=== PATIENT | female | born 1975 ===

== ENCOUNTER 2018-06-14 15:29 | Emergency (ER) | payer OTHER ==
--- NOTE | 2018-06-14 16:02 | ED PDOC ---
HPI: Back Time Seen by Provider: 06/14/18 15:53 Chief Complaint (Nursing): Back Pain Chief Complaint (Provider): Back Pain History Per: Patient, Zone Manager (ANNIEOMARJaleel BurnetteProtocol Manager #[id number]) Onset/Duration Of Symptoms: Days (x3) Current Symptoms Are (Timing): Still Present Additional Complaint(s): 42 y/o female with a PMHx of Kidney Stones presents to the ED for evaluation of left flank pain for the past three days. Patient states pain is more constant and is worsening since onset. Patient notes pain worsens with movement. Patient reports of taking Rowatinex with no relief of symptoms. Otherwise, patient denies injury and urinary symptoms including hematuria and dysuria. PMD: no provider Past Medical History Reviewed: Historical Data, Nursing Documentation, Vital Signs Vital Signs: Last Vital Signs Temp 98.1 F 06/14/18 15:46 Pulse 64 06/14/18 15:46 Resp 18 06/14/18 15:46 BP 118/80 06/14/18 15:46 Pulse Ox 100 06/14/18 15:46 - Medical History PMH: Kidney Stones - Surgical History Surgical History: No Surg Hx - Family History Family History: States: Unknown Family Hx - Home Medications Home Medications: Ambulatory Orders Medication Instructions Recorded Acetaminophen with Codeine 1 tab PO Q6H PRN #10 tab 06/14/18 [Tylenol with Codeine No. 3 300 mg-30 mg] Naproxen [Naprosyn] 500 mg PO BID PRN #15 tablet 06/14/18 Nitrofurantoin Macrocrystals 100 mg PO BID #9 cap 06/14/18 [Macrobid] - Allergies Allergies/Adverse Reactions: Allergies Allergy/AdvReac Type Severity Reaction Status Date / Time No Known Allergies Allergy Verified 06/14/18 15:46 Review of Systems ROS Statement: Except As Marked, All Systems Reviewed And Found Negative Genitourinary Female: Negative for: Dysuria, Hematuria Musculoskeletal: Positive for: Back Pain (left flank pain) Physical Exam - Reviewed Nursing Documentation Reviewed: Yes Vital Signs Reviewed: Yes - Physical Exam Appears: Positive for: No Acute Distress Head Exam: Positive for: ATRAUMATIC, NORMOCEPHALIC Skin: Positive for: Normal Color, Warm, Dry Eye Exam: Positive for: Normal appearance, EOMI, PERRL Neck: Positive for: Normal, Painless ROM, Supple Cardiovascular/Chest: Positive for: Regular Rate, Rhythm. Negative for: Murmur Respiratory: Positive for: Normal Breath Sounds. Negative for: Respiratory Distress Gastrointestinal/Abdominal: Positive for: Normal Exam, Soft. Negative for: Tenderness Back: Positive for: L CVA Tenderness. Negative for: R CVA Tenderness Extremity: Positive for: Normal ROM. Negative for: Deformity Neurological/Psych: Positive for: Awake, Alert, Oriented (x3). Negative for: Motor/Sensory Deficits - Laboratory Results Result Diagrams: 06/14/18 16:48 06/14/18 16:48 - ECG O2 Sat by Pulse Oximetry: 100 (RA) Pulse Ox Interpretation: Normal Medical Decision Making Medical Decision Making: Time: 1559 Impression: Flank Pain Plan: -- ED Urine -- ED Urine Dipstick Accession No. : [id number] Patient Name / ID : JUANA GOFF / [id number] Exam Date : 06/14/2018 17:49:20 ( Approved ) Study Comment : Sex / Age : F / 42Y Creator : ashley kathleen Dictator : Trev Rodriguez MD [employer] Coiling Machine Setter : Vice President Of Contracts : Trev Rodriguez MD Approver2 : Report Date : 06/14/2018 18:00:04 My Comment : Date of service: 06/14/2018 PROCEDURE: CT Abdomen and Pelvis without intravenous contrast HISTORY: L flank pain, h/o kidney stone COMPARISON: None. TECHNIQUE: Axial and reformatted coronal and sagittal CT images of the abdomen and pelvis were obtained without IV or oral contrast administration. Contrast dose: 0 Radiation dose: Total exam DLP = 468.8 mGy-cm. This CT exam was performed using one or more of the following dose reduction te chniques: Automated exposure control, adjustment of the mA and/or kV according to patient size, and/or use of iterative reconstruction technique. FINDINGS: LOWER THORAX: There is 3 millimeter calcified nodule at the right lung lower lobe. No evidence of pneumonia or pleural effusion. LIVER: Hepatomegaly is noted. GALLBLADDER AND BILE DUCTS: No evidence of radiopaque cholelithiasis or acute cholecystitis. PANCREAS: Unremarkable. No gross lesion or ductal dilatation. SPLEEN: Unremarkable. ADRENALS: Unremarkable. No mass. KIDNEYS AND URETERS: There is large staghorn calculus at the left renal pelvis measures up to 2.3 centimeter in the transverse diameter. Hijp-pi-gtafddka right hydronephrosis is noted. Mild left hydronephrosis is noted. No evidence of ureteral stones. No evidence of right renal calculi. VASCULATURE: Unremarkable. No aortic aneurysm. No aortic atherosclerotic calcification or mural plaque present. BOWEL: Unremarkable. No obstruction. No gross mural thickening. APPENDIX: Unremarkable. Normal appendix. PERITONEUM: Unremarkable. No free fluid. No free air. LYMPH NODES: Unremarkable. No enlarged lymph nodes. BLADDER: Unremarkable. REPRODUCTIVE: 2.9 centimeter cyst noted at the right adnexa. BONES: No acute fracture. 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 OTHER FINDINGS: None. IMPRESSION: Large staghorn calculus in the left kidney collecting system. Doxu-vr-seyymbrc right hydronephrosis without definite evidence of obstructing calculus. Mild left hydronephrosis. Mild bilateral hydroureter is without evid ence of obstructing stone. 2.9 centimeter cyst at the right adnexa. 20:[address] Borjas, agrees with discharge home with antibiotics and pain meds, to follow-up in office. Plan discussed with patient in detail using cut roll machine offbearer. Scribe Attestation: Documented by Keyla Castillo, acting as a scribe Cuauhtemoc Alberts MD. Provider Scribe Attestation: All medical record entries made by the Scribe were at my direction and personally dictated by me. I have reviewed the chart and agree that the record accurately reflects my personal performance of the history, physical exam, [place] [facility] decision making, and the department course for this patient. I have also personally directed, reviewed, and agree with the discharge instructions and disposition. Disposition - Clinical Impression Clinical Impression: Staghorn renal calculus, UTI (urinary tract infection) - Disposition Referrals: Max Borjas MD [Medical Doctor] - Disposition: Routine/Home Disposition Time: 20:00 Condition: STABLE Prescriptions: Acetaminophen with Codeine [Tylenol with Codeine No. 3 300 mg-30 mg] 1 tab PO Q6H PRN #10 tab PRN Reason: Pain, Severe (8-10) Naproxen [Naprosyn] 500 mg PO BID PRN #15 tablet PRN Reason: Pain, Moderate (4-7) Nitrofurantoin Macrocrystals [Macrobid] 100 mg PO BID #9 cap Instructions: Urinary Tract Infections in Adults, Kidney Stones in Adults Forms: [facility] (Swazi) Print Language: JAPANESE
[2018-06-14] MEDS ORDERED: Sodium Chloride 0.9% 1,000 ML IV STA (16:27)
[2018-06-14 16:55] LABS: BASO % 0.6 % (0.0-2.0); EOS # 0.1 K/uL (0.0-0.7); EOS % 1.9 % (0.0-4.0); HEMOGLOBIN 11.9 g/dL (12.0-16.0); LYMPH # 2.8 K/uL (1.0-4.3); LYMPH % 39.8 % (20.0-40.0); MEAN CORPUSCULAR HGB CONC 33.4 g/dL (33.0-37.0); MONO # 0.5 K/uL (0.0-0.8); MONO % 6.7 % (0.0-10.0); NEUT # 3.6 K/uL (1.8-7.0); RBC 4.09 Mil/uL (3.80-5.20); RED CELL DISTRIBUTION WIDTH 13.3 % (11.5-14.5)
[2018-06-14 17:00] LABS: INR 0.9; PROTHROMBIN TIME 10.6 Seconds (9.8-13.1)
[2018-06-14 17:03] LABS: PARTIAL THROMBOPLASTIN TIME 29.7 Seconds (25.6-37.1)
[2018-06-14 17:19] LABS: SQUAMOUS EPITHIAL < 1 /hpf (0-5); URINE BACTERIA RARE (<OCC); URINE BILIRUBIN NEGATIVE (NEGATIVE); URINE BLOOD SMALL (NEGATIVE); URINE CLARITY CLEAR (Clear); URINE COLOR STRAW (YELLOW); URINE GLUCOSE (UA) NEG (NEGATIVE); URINE LEUKOCYTE ESTERASE SMALL Leu/uL (Negative); URINE PROTEIN NEGATIVE (NEGATIVE); URINE UROBILINOGEN 0.2-1.0 mg/dL (0.2-1.0)
[2018-06-14 17:20] LABS: ALB/GLOB RATIO 1.2 (1.0-2.1); ALBUMIN 4.3 g/dL (3.5-5.0); ALT/SGPT 30 U/L (9-52); AST/SGOT 26 U/L (14-36); BLOOD UREA NITROGEN 13 mg/dl (7-17); CALCIUM 9.2 mg/dL (8.4-10.2); GFR NON-AFRICAN AMERICAN > 60
--- NOTE | 2018-06-14 18:29 | CT ---
Date of service: 06/14/2018 PROCEDURE: CT Abdomen and Pelvis without intravenous contrast HISTORY: L flank pain, h/o kidney stone COMPARISON: None. TECHNIQUE: Axial and reformatted coronal and sagittal CT images of the abdomen and pelvis were obtained without IV or oral contrast administration. Contrast dose: 0 Radiation dose: Total exam DLP = 468.8 mGy-cm. This CT exam was performed using one or more of the following dose reduction techniques: Automated exposure control, adjustment of the mA and/or kV according to patient size, and/or use of iterative reconstruction technique. FINDINGS: LOWER THORAX: There is 3 millimeter calcified nodule at the right lung lower lobe. No evidence of pneumonia or pleural effusion. LIVER: Hepatomegaly is noted. GALLBLADDER AND BILE DUCTS: No evidence of radiopaque cholelithiasis or acute cholecystitis. PANCREAS: Unremarkable. No gross lesion or ductal dilatation. SPLEEN: Unremarkable. ADRENALS: Unremarkable. No mass. KIDNEYS AND URETERS: There is large staghorn calculus at the left renal pelvis measures up to 2.3 centimeter in the transverse diameter. Idwp-[id number]-trpymugk right hydronephrosis is noted. Mild left hydronephrosis is noted. No evidence of ureteral stones. No evidence of right renal calculi. VASCULATURE: Unremarkable. No aortic aneurysm. No aortic atherosclerotic calcification or mural plaque present. BOWEL: Unremarkable. No obstruction. No gross mural thickening. APPENDIX: Unremarkable. Normal appendix. PERITONEUM: Unremarkable. No free fluid. No free air. LYMPH NODES: Unremarkable. No enlarged lymph nodes. BLADDER: Unremarkable. REPRODUCTIVE: 2.9 centimeter cyst noted at the right adnexa. BONES: No acute fracture. 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 OTHER FINDINGS: None. IMPRESSION: Large staghorn calculus in the left kidney collecting system. Wovl-lt-fhkramcw right hydronephrosis without definite evidence of obstructing calculus. Mild left hydronephrosis. Mild bilateral hydroureter is without evidence of obstructing stone. 2.9 centimeter cyst at the right adnexa.
[2018-06-14 20:22] VITALS: BP 121/60; PULSE 80; RESP 14; TEMP 98.2
[2018-06-17 10:29] VITALS: O2SAT 100
== END 2018-06-14 20:21 | disposition home or self-care (01) ==
LOC: H.ER 15:29
DX: N20.0 Calculus of kidney (principal); N39.0 Urinary tract infection, site not specified
CPT/HCPCS: 74176; 80053; 81003; 81025; 85025; 85610; 85730; 96374; 99282; J1885; J7030